=== PATIENT | female | born 1935 | race Caucasian/White ===

== ENCOUNTER → 2016-12-16 | Outpatient (CLI) | payer OTHER ==
--- NOTE | 2016-12-16 11:48 | DI ---
XR ANKLE COMPLETE MIN 3VW,12/16/2016 9:50 AM: Clinical History: Right ankle pain of unspecified chronicity. Previous Exam: None at this facility. Findings: 3 views of the right ankle are obtained, and demonstrate diffuse osteopenia. There is soft tissue swe lling surrounding the right ankle. There is a cortical bone screw through the medial malleolus and the distal tibia. There are degenerative changes involving the tarsometatarsal joints. There is some enthesopathy noted at the insertion of plantar fascia. Advanced degenerative changes of the tibiotalar joint are also noted with some sclerosis. Impression: 1. No acute fractures. 2. 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 3. Postsurgical changes and surrounding soft tissue swelling.
== END ==
LOC: ORTHO 10:00
PROVIDERS: ATTEND Orthopaedic Surgery
DX: M25.571 Pain in right ankle and joints of right foot (principal); M19.071 Primary osteoarthritis, right ankle and foot; Z98.890 Other specified postprocedural states
CPT/HCPCS: 73610; 99203; G0463

== ENCOUNTER 2017-07-07 06:00 | Inpatient (IN) ==
[~2017-07-07 06:00] MED LIST: LIDOCAINE W/ SODIUM BICARB 0.5 ML SYR ONE; LIDOCAINE W/ SODIUM BICARB 0.5 ML SYR SUBD ONE; Lactated Ringers 1,000 ML PRIMARY IV ONE; ceFAZolin Inj 2gm (Premix) 2 GM/50 ML BAG IV ONE
[2017-07-07] MEDS: Lactated Ringers 1,000 ML PRIMARY IV SCH ×4 (06:15→20:54)
[2017-07-07 06:29] LABS: BILIRUBIN,URINE NEGATIVE (NEG); CLARITY,URINE CLEAR (CLEAR); COLOR,URINE YELLOW (Y); GLUCOSE, URINE (UA) NEGATIVE (NEG); OCCULT BLOOD,URINE NEGATIVE (NEG); PROTEIN,URINE TRACE mg/dl (NEG)
[2017-07-07 06:36] LABS: BACTERIA,URINE FEW; RBC,URINE 0 /hpf; RENAL EPITHELIAL CELLS,URINE RARE; SQUAMOUS EPITHELIAL CELL,UR MANY; URINE SAMPLE TYPE CLEAN CATCH URINE
[2017-07-07 06:37] LABS: URINE CASTS FEW
[2017-07-07] MEDS ORDERED: Vancomycin Inj 1gm vial ONE (07:00)
[2017-07-07] MEDS ORDERED: TRANEXAMIC ACID 1,000 MG / 10 ML VIAL ONE (07:01)
[2017-07-07] MEDS ORDERED: Sodium Chloride 0.9% 100 ML IV ONE (07:01)
[2017-07-07] MEDS ORDERED: MIDAZOLAM 5 MG/1 ML ONE (07:06)
[2017-07-07] MEDS ORDERED: fentaNYL Inj 100 MCG/2 ML VIAL ONE (07:06)
[2017-07-07] MEDS ORDERED: BUPivacaine Inj 0.25% PF - 10ml vial ONE ×2 (07:06→10:08)
[2017-07-07] MEDS ORDERED: LIDOCAINE 2%/ EPI 1:200,000 - 20 ML VIAL ONE (07:06)
[2017-07-07] MEDS ORDERED: BUPivacaine Inj 0.5% PF (5mg/ml) 10ml vial ONE (07:07)
[2017-07-07] MEDS ORDERED: LIDOCAINE W/ SODIUM BICARB 0.5 ML SYR ONE (07:11)
[2017-07-07] MEDS ORDERED: PROPOFOL 10 MG/1 ML (200 MG/20 ML) VIAL IV ONE (07:35)
[2017-07-07] MEDS ORDERED: ROCURONIUM 10 MG/1 ML - 5 ML VIAL IVP ONE (07:36)
[2017-07-07] MEDS ORDERED: Lactated Ringers 1,000 ML PRIMARY IV ONE (08:44)
[2017-07-07] MEDS ORDERED: PROMETHAZINE 25 MG/1 ML VIAL IM PRN (09:03)
[2017-07-07] MEDS ORDERED: fentaNYL Inj 100 MCG/2 ML VIAL IVP PRN (09:03)
[2017-07-07] MEDS ORDERED: NORMAL SALINE 10 ML SYRINGE FLUSH IVP PRN (09:03)
[2017-07-07] MEDS ORDERED: ONDANSETRON 4 MG/2 ML VIAL IVP PRN (09:03)
[2017-07-07] MEDS ORDERED: HYDROmorphone 2 MG/1 ML IVP PRN (09:03)
--- NOTE | 2017-07-07 09:03 | CRNA.PROCE ---
Nerve Block Documentation - - Safety Measures: Time Out Taken, Site Verified - - Type of Nerve Block Used: Right Popliteal Fossa Block (Also Right saphenous field block with 10ml 0.25% Marcaine plain) Position for Nerve Block: Prone Moniters Used During Block: EKG, SPO2, NIBP Sedation Used - Enter Amount in Comment Field [ANES.SEDAT]: Midazolam (mg): Yes (3mg iv), Fentanyl (mcg): Yes (100mcg iv) Skin Prep Used: ChloroPrep Technique: Nerve Stimulator Nerve Block Needle Used: 80 mm ProBlk II Stimulation Hz: 1.0 Stimulation Staring mA: 1.4 Stimulation Ending mA: 0.5 Local Anesthetic - Enter Amt in Comment Field [ANES.LOCNB]: 0.5 % Bupivacaine Plain (mL): Yes (20ml), 2 % Xylocaine with Epinephrine 1:200,000 (mL): Yes (20ml ) - - PreOp Block : Time In: 07:15 PreOp Block : Time Out: 07:30 Anesthesia Time - Other Weight: 78.471 kg Height: 5 ft 1.5 in Body Mass Index (BMI): 32.1
[2017-07-07] MEDS ORDERED: Lactated Ringers 1,000 ML PRIMARY IV SCH (09:15)
[2017-07-07] MEDS ORDERED: ONDANSETRON 4 MG/2 ML VIAL ONE (10:03)
--- NOTE | 2017-07-07 10:56 | CRNA.PROGR ---
Anesthesia Recovery Phase I - Post Anesthesia Evaluation Patient's Condition on Arrival in Phase I: Stable Pain Level: 0
--- NOTE | 2017-07-07 10:57 | CRNA.PROGR ---
Anesthesia Time - - Start date: 07/07/17 End date: 07/07/17 - Procedure/Recovery Time Anesthesia : Time In: 07:48 Anesthesia : Time Out: 10:43 Anesthesia : Total Time: 175 - Block Time PreOp Block : Time In: 07:15 PreOp Block : Time Out: 07:30 PreOp Block : Total Time: 15 - Total Anesthesia Time Total Anesthesia Time (minutes): 190 - Other Weight: 78.471 kg Height: 5 ft 1.5 in Body Mass Index (BMI): 32.1 Anesthesia Type: General Anesthesia : ET (Right total ankle)
[2017-07-07] MEDS ORDERED: MORPHINE SULFATE 2 MG/1 ML IVP PRN (11:30)
--- NOTE | 2017-07-07 11:30 | PDOC(PROG) ---
General Note Progress Note: PReop dx: Right ankle arthritis with retained HW Postop dx: Same Procedure: Right total ankle arthroplasty with HWR Surgeon: Victor Manuel Assist: Ulysses TT: [id number] Implants: [place] Complications none Findings as expected Blood loss: 50cc Stable to recovery
[2017-07-07] MEDS ORDERED: MORPHINE SULFATE 2 MG/1 ML IV PRN (12:17)
[2017-07-07] MEDS ORDERED: MORPHINE SULFATE 10 MG/1 ML IV PRN (12:17)
[2017-07-07] MEDS: oxyCODONE-ACETAMINOPHEN 5-325 TAB PO PRN ×2 (15:02→20:04)
--- NOTE | 2017-07-07 15:07 | CONSULT ---
Consult Note - Consult Consult Date: 07/07/17 Reason for Consult: PostOp Consulation : Ortho Requesting Physician: Dr. Rush Primary Care Provider: ELI REA - History of Present Illness History of Present Illness: This is 82 years old female with medical history significant for history of hypertension, hypercholesterolemia, COPD on oxygen at night and neuropathy with history of for osteoarthritis of the right ankle who came into the hospital to have right ankle arthroplasty done by Dr. Rush today, the hospitalist service were consulted for management of medical issues. Apart from pain in the right ankle patient is denying other symptoms. She rated her pain at 8/10. There is no nausea, no chest pain, no shortness of breath. Past Medical History Medical History: 1. Hypertension. 2. 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 3. Neuropathy. 4. Osteoarthritis Surgical History: 1. Bilateral hip replacements. 2. Bilateral shoulder replacement. 3. Bilateral placement. 4. Cholecystectomy. 5. Tonsillectomy and adenoidectomy. 6. Hysterectomy Family History: Reviewed an Not Pertinent Past Social History: Does not smoke, rarely drinks. No drugs. Lives in [place] from [place] with her . Tobacco Use: Former Smoker In the Past 12 Months, Have Used or Abuse Any of the Following Substance: Opiate Pain Medication Alcohol Use: Rarely Review of Systems - Review of Systems All Systems: Reviewed & No Additional Complaints Except as Stated Medication / Allergies Home Medications: Home Medications 3 Medication Instructions Recorded Confirmed Type Acetaminophen 500 mg PO TID PRN PRN 10/31/15 07/07/17 History Ascorbate Calcium/Bioflavonoid 1 tab PO DAILY 10/31/15 07/07/17 History [Anna Marie-C 500 mg Tablet] Calcium Carbonate/Vitamin D3 1 tab PO DAILY 10/31/15 07/07/17 History [Os-Bob 500+D Tablet] Carvedilol 6.25 mg PO BID 10/31/15 07/07/17 History Chlorthalidone 25 mg PO QAM 10/31/15 07/07/17 History Cholecalciferol [Vitamin D3] 2,000 unit PO DAILY 10/31/15 History Cyanocobalamin (Vitamin B-12) 500 mcg PO DAILY 10/31/15 07/07/17 History [Vitamin B-12] Diltiazem HCl [Cardizem] 360 mg PO EVERY AM 10/31/15 07/07/17 History Furosemide 20 mg PO DAILY PRN 10/31/15 07/07/17 History Hydrocodone Bit/Acetaminophen 1 tab PO Q6H PRN 10/31/15 07/07/17 History [Hydrocodon-Acetaminophen 5-325] Magnesium 250 mg PO DAILY 10/31/15 07/07/17 History Multivitamin [Multivitamins] 1 tab PO DAILY 10/31/15 07/07/17 History Nortriptyline HCl 10 mg PO BID 10/31/15 07/07/17 History Omeprazole 20 mg PO QAM 10/31/15 07/07/17 History Potassium Chloride [Klor-Con] 10 meq PO DAILY 10/31/15 07/07/17 History Pravastatin Sodium 10 mg PO BEDTIME 10/31/15 07/07/17 History Allergies/Adverse Reactions: Allergies 3 Allergy/AdvReac Type Severity Reaction Status Date / Time lisinopril Allergy Intermediate cough Verified 07/07/17 06:34 Exam - Vitals Vital Signs: Vital Signs Temperature 97.5 F Temperature Source Temporal Artery Scan Pulse Rate [Pulse Oximeter] 78 Pulse Rate 69 Respiratory Rate 18 Blood Pressure [Right Arm] 120/84 Blood Pressure 135/64 Pulse Ox 95 Oxygen Flow Rate 3 Oxygen Delivery Method Nasal Cannula Height 5 ft 1.5 in Weight 173 lb - General General Appearance: No Acute Distress, Cooperative - Head Head Exam: Normal Inspection - Eye Eye Exam: POSITIVE: Normal Appearance - ENT ENT Exam: POSITIVE: Normal Exam - Neck Neck Exam: Normal Inspection - Respiratory Respiratory Exam: POSITIVE: Clear to Auscultation - Bilaterally - Cardiovascular Cardiovascular Exam: POSITIVE: RRR - GI/Abdominal GI/Abdominal Exam: POSITIVE: Normal Bowel Sounds, Non Tender, Non Distended, Soft, No Organomegaly - Rectal Rectal Exam: POSITIVE: Deferred - External Exam: POSITIVE: Deferred - Extremities Additional Extremities Exam Details: Right leg in a cast. - Back Back Exam: POSITIVE: Normal Inspection - Neurological Neurological Exam: POSITIVE: Alert, Oriented x 3, CN II-XII Intact - Psychiatric Psychiatric Exam: POSITIVE: Normal Affect Assessment and Plan - Patient Problems (1) Status post surgery Current Visit: Yes Status: Acute Comment: She is status post right ankle arthroplasty. She'll be evaluated by PT and OT today. We'll see her progress tomorrow and see whether she needs to stay longer in the hospital. Code(s): Z98.890 - Other specified postprocedural states (2) Hypertension Current Visit: No Status: Acute Comment: Resume previous medication except will hold the chlorthalidone Code(s): I10 - Essential (primary) hypertension (3) Hyperlipidemia Current Visit: Yes Status: Acute Comment: Same med Code(s): E78.5 - Hyperlipidemia, unspecified
[2017-07-07] MEDS: NORMAL SALINE 10 ML SYRINGE FLUSH IVP PRN (17:21)
[2017-07-07] MEDS: KETOROLAC 15 MG/1 ML VIAL IVP PRN ×2 (17:21→23:18)
[2017-07-07] MEDS: MORPHINE SULFATE 4 MG/1 ML IV PRN ×3 (20:00→23:18)
[2017-07-07] MEDS: Pravastatin Tab 20 MG TAB PO SCH (20:01)
[2017-07-07] MEDS: CARVEDILOL 6.25 MG TABLET PO SCH (20:01)
[2017-07-07] MEDS ORDERED: NORTRIPTYLINE HCL 10 MG CAPSULE PO SCH ×2 (21:00)
[2017-07-08] MEDS: oxyCODONE-ACETAMINOPHEN 5-325 TAB PO PRN ×4 (01:45→21:20)
[2017-07-08] MEDS: KETOROLAC 15 MG/1 ML VIAL IVP PRN ×2 (04:57→21:20)
[2017-07-08] MEDS: Lactated Ringers 1,000 ML PRIMARY IV SCH (04:58)
[2017-07-08] MEDS: OMEPRAZOLE 20 MG CAPSULE PO SCH (07:06)
[2017-07-08] MEDS: MAGNESIUM OXIDE 400 MG TABLET PO SCH (07:06)
--- NOTE | 2017-07-08 07:43 | PDOC(PROG) ---
Date and Time of Service: 07/08/2017 7:43 AM Interval History: Subjective She said her pain seems to be better better controlled than yesterday. She is denying other symptoms. Apparently she is still too weak to go home. Objective : Exam - General General Appearance: No Acute Distress, Cooperative - Head Head Exam: Normal Inspection - Eye Eye Exam: Normal Appearance - ENT ENT Exam: Normal Exam - Neck Neck Exam: Normal Inspection - Respiratory Respiratory Exam: Clear to Auscultation - Bilaterally - Cardiovascular Cardiovascular Exam: RRR - GI/Abdominal GI/Abdominal Exam: Normal Bowel Sounds, Non Tender, Non Distended, Soft, No Organomegaly - Rectal Rectal Exam: Deferred - External Exam: Deferred - Extremities Additional Extremities Exam Details: Right leg in a cast. - Back Back Exam: Normal Inspection - Neurological Neurological Exam: Alert, Oriented x 3, CN II-XII Intact, No Facial Droop, Speech Intact / Clear - Psychiatric Psychiatric Exam: Normal Affect - Integumentary Integumentary Exam: Normal Color Assessment and Plan - Patient Problems (1) Status post surgery Current Visit: Yes Status: Acute Comment: She is status post ankle surgery. Continue current pain medication. Continue PT and OT. Per my discussion with Dr. Rush yesterday he was thinking about sending her home today but based on assessment of PT and OT she is unable to go home today. will switch her status to inpatient and she may need even a swing bed letr on. Will discuss it with the internet media planner. Code(s): Z98.890 - Other specified postprocedural states (2) Hypertension Current Visit: No Status: Acute Comment: Same med Code(s): I10 - Essential (primary) hypertension (3) Hyperlipidemia Current Visit: Yes Status: Acute Comment: Same med Code(s): E78.5 - Hyperlipidemia, unspecified
[2017-07-08] MEDS: DILTIAZEM CD 180 MG CAP PO SCH (08:17)
[2017-07-08] MEDS: CARVEDILOL 6.25 MG TABLET PO SCH ×2 (08:17→21:21)
[2017-07-08] MEDS: NORTRIPTYLINE HCL 10 MG CAPSULE PO SCH ×2 (08:18→21:23)
[2017-07-08] MEDS: Calcium/Vit D 600mg/400u Tab 1 TAB TABLET PO SCH (08:18)
[2017-07-08] MEDS: Multivitamin Tab 1 TAB PO SCH (08:18)
[2017-07-08] MEDS ORDERED: CYANOCOBALAMIN 500 MCG PO SCH (09:00)
--- NOTE | 2017-07-08 11:44 | PT.PROG ---
Progress Note Progress Note: S. Patient stated that she is a little sore this morning, O. Patient performed seated exercises in the form of; long arc quads, marches, pillow squeezes, clam shells all x 10 bilaterally, ankle pumps on the left x 10. Patient was left in chair with alarm and call light. A. Patient tolerated exercise well, she is concerned about how she is going to transfer safely at home. Patient would benefit from swing bed to increase strength and mobility at this time. P. Continue POC.
--- NOTE | 2017-07-08 16:45 | OT.PROG ---
Progress Note Progress Note: S: Pt. reports that she is feeling pretty good this afternoon with minimal pain prior to therapy session. O: Pt. was seen from 1530 to 1600 for skilled occupational therapy session. Pt. completed seated UBE X 8 min and the following UE strengthening with RTB: biceps curls X 20, triceps extension X 15, shoulder flexion X 15, horizontal abduction X 15, shoulder extension X 15, and rows X 15. She also completed 2# shoulder flexion X 15 and 2# chest press X 15. A: Pt. tolerated UE strengthening fair, however continues to demonstrate UE weakness, specifically with functional transfers. Pt. continues to benefit from skilled care to increase strength, ADL performance, safety, and functional transfers. P: Continue POC. TIANA Robin/Tha
--- NOTE | 2017-07-08 17:11 | PT.PROG ---
Progress Note Progress Note: S. Patient stated that she is a little sore this afternoon. O. Patient was dependently transferred to the wheelchair and wheeled to the therapy gym where she performed seated exercises in the form of; long arc quads , marches, ball squeezes, clam shells, all x 10 bilaterally, heel toe raises on the left. Patient performed sit to stands x 5 then performed standing heel raises x 5 on her left, then performed pivot transfer to the chair and was left with call light and alarm. A. Patient tolerated exercise fair, she is very hesitant about the transfer and is fearful of hurting her left hip, she would benefit from continued strengthening and mobility. P. Continue POC.
[2017-07-08] MEDS: NORMAL SALINE 10 ML SYRINGE FLUSH IVP PRN (21:19)
[2017-07-08] MEDS: Pravastatin Tab 20 MG TAB PO SCH (21:20)
[2017-07-09] MEDS: oxyCODONE-ACETAMINOPHEN 5-325 TAB PO PRN ×5 (01:04→20:32)
[2017-07-09] MEDS: NORMAL SALINE 10 ML SYRINGE FLUSH IVP PRN ×3 (05:02→18:42)
[2017-07-09] MEDS: KETOROLAC 15 MG/1 ML VIAL IVP PRN (05:03)
[2017-07-09 05:20] LABS: BASOPHILS # (AUTO) 0.02 10*3/UL; BASOPHILS % (AUTO) 0.3 % (0-1); EOSINOPHILS # (AUTO) 0.15 10*3/UL; EOSINOPHILS % (AUTO) 1.9 % (0-8); Hematocrit [HCT] 32.3 % (37.0-47.0); Hemoglobin [HGB] 10.7 g/dL (12.0-16.0); LYMPHOCYTES # (AUTO) 1.43 10*3/uL; MEAN CORPUSCULAR HEMOGLOBIN 30.9 PG (27-31); MEAN CORPUSCULAR HGB CONC 33.1 g/dL (33-37); MEAN CORPUSCULAR VOLUME 93.4 FL (81-99); MEAN PLATELET VOLUME 9.3 FL (7.4-12.2); MONOCYTES # (AUTO) 0.68 10*3/UL (0.3-0.8); MONOCYTES % (AUTO) 8.5 % (5-15); NEUTROPHILS # (AUTO) 5.67 10*3/UL; NEUTROPHILS % (AUTO) 71.2 % (50-80); RED BLOOD COUNT 3.46 10^6/uL (4.20-5.40)
[2017-07-09 05:30] LABS: BLOOD UREA NITROGEN 14 mg/dL (7-22)
[2017-07-09 05:32] LABS: PLATELET MORPHOLOGY COMMENT NORMAL MORPHOLOGY (NORM); RBC MORPHOLOGY COMMENT NORMAL MORPHOLOGY (NORM); WBC MORPHOLOGY COMMENT NORMAL MORPHOLOGY (NORM)
[2017-07-09] MEDS: MAGNESIUM OXIDE 400 MG TABLET PO SCH (06:34)
[2017-07-09] MEDS: OMEPRAZOLE 20 MG CAPSULE PO SCH (06:34)
[2017-07-09] MEDS: Calcium/Vit D 600mg/400u Tab 1 TAB TABLET PO SCH (08:32)
[2017-07-09] MEDS: CARVEDILOL 6.25 MG TABLET PO SCH ×2 (08:32→20:31)
[2017-07-09] MEDS: NORTRIPTYLINE HCL 10 MG CAPSULE PO SCH ×2 (08:32→20:31)
[2017-07-09] MEDS: Multivitamin Tab 1 TAB PO SCH (08:32)
[2017-07-09] MEDS: DILTIAZEM CD 180 MG CAP PO SCH (08:32)
--- NOTE | 2017-07-09 08:51 | PDOC(PROG) ---
Date and Time of Service: 07/09/2017 8:47 AM Interval History: Subjective Pain seemed to be controlled. Denying other symptoms. Objective : Data - Labs CBC and BMP: 07/09/17 05:12 07/09/17 05:12 Objective : Exam - General General Appearance: No Acute Distress, Cooperative - Head Head Exam: Normal Inspection - Eye Eye Exam: Normal Appearance - ENT ENT Exam: Normal Exam - Neck Neck Exam: Normal Inspection - Respiratory Respiratory Exam: Clear to Auscultation - Bilaterally - Cardiovascular Cardiovascular Exam: RRR - GI/Abdominal GI/Abdominal Exam: Normal Bowel Sounds, Non Tender, Non Distended, Soft, No Organomegaly - Rectal Rectal Exam: Deferred - External Exam: Deferred - Extremities Additional Extremities Exam Details: Right leg in a cast. - Back Back Exam: Normal Inspection - Neurological Neurological Exam: Alert, Oriented x 3, CN II-XII Intact - Psychiatric Psychiatric Exam: Normal Affect Assessment and Plan - Patient Problems (1) Status post surgery Current Visit: Yes Status: Acute Comment: Continue PT and OT. She lives alone with her she may end up needing to be on swing bed. Code(s): Z98.890 - Other specified postprocedural states (2) Hypertension Current Visit: No Status: Acute Comment: Continue same medications. Will restart her chlorthalidone. Continue holding the Lasix. Code(s): I10 - Essential (primary) hypertension (3) Hyperlipidemia Current Visit: Yes Status: Acute Comment: Same med Code(s): E78.5 - Hyperlipidemia, unspecified (4) Hypokalemia Current Visit: No Status: Acute Comment: Her potassium is low will add some potassium. We'll recheck it tomorrow and will check magnesium level also Code(s): E87.6 - Hypokalemia (5) DVT prophylaxis Current Visit: Yes Status: Acute Comment: Will start her on Lovenox
[2017-07-09] MEDS: ONDANSETRON 4 MG/2 ML VIAL IVP PRN ×2 (09:45→18:41)
[2017-07-09] MEDS: POTASSIUM CHLORIDE 20 MEQ TAB PO SCH ×2 (10:56→20:31)
[2017-07-09] MEDS: ENOXAPARIN SODIUM 40 MG/0.4 ML SYRINGE SUBCUT SCH (10:56)
[2017-07-09] MEDS: CHLORTHALIDONE 25 MG PO SCH (11:28)
--- NOTE | 2017-07-09 14:31 | ORTHO.PROG ---
Last Taken Vital Signs: Vital Signs - Last Taken Temperature 97.9 F 07/09/17 13:22 Pulse Rate 74 07/09/17 13:22 Respiratory Rate 18 07/09/17 13:22 Blood Pressure 125/63 07/09/17 13:22 Pulse Ox 91 07/09/17 13:22 Subjective: Pt feeling well, had some nausea earlier today but feeling well now. Sensation has returned to her baseline. Objective: SPlint in place RLE. Toes WWP, +EHL/FHL. Sensation at baseline. Assessment: POD#2 right total ankle replacement. Pt has not been able to pass PT and will likely require rehab bed. This was discussed with her. She will be NWB on her RLE for a total of 4 weeks and then begin weight bearing in a boot. Plan: Agree with rehab if unable to pass PT today or tomorrow. Lovenox for DVT ppx per hospitalist PT/OT Please keep right ankle elevated while in bed. Call with questions.
[2017-07-09] MEDS: DOCUSATE 100 MG CAPSULE PO PRN (20:31)
[2017-07-09] MEDS: Pravastatin Tab 20 MG TAB PO SCH (20:31)
[2017-07-10] MEDS: oxyCODONE-ACETAMINOPHEN 5-325 TAB PO PRN (04:33)
[2017-07-10] MEDS: DOCUSATE 100 MG CAPSULE PO PRN (04:33)
[2017-07-10 06:36] LABS: BLOOD UREA NITROGEN 14 mg/dL (7-22)
[2017-07-10] MEDS: OMEPRAZOLE 20 MG CAPSULE PO SCH (06:59)
[2017-07-10] MEDS: MAGNESIUM OXIDE 400 MG TABLET PO SCH (06:59)
[2017-07-10] MEDS ORDERED: Magnesium Sulfate 2gm (Premix) 2 GM/50 ML BAG IV ONE (07:59)
[2017-07-10] MEDS: ONDANSETRON 4 MG/2 ML VIAL IVP PRN (08:37)
[2017-07-10] MEDS: ENOXAPARIN SODIUM 40 MG/0.4 ML SYRINGE SUBCUT SCH (09:49)
[2017-07-10] MEDS: CARVEDILOL 6.25 MG TABLET PO SCH ×2 (09:50→20:41)
[2017-07-10] MEDS: Calcium/Vit D 600mg/400u Tab 1 TAB TABLET PO SCH (09:50)
[2017-07-10] MEDS: NORTRIPTYLINE HCL 10 MG CAPSULE PO SCH ×2 (09:50→20:41)
[2017-07-10] MEDS: Multivitamin Tab 1 TAB PO SCH (09:50)
[2017-07-10] MEDS: DILTIAZEM CD 180 MG CAP PO SCH (09:50)
[2017-07-10] MEDS: POTASSIUM CHLORIDE 20 MEQ TAB PO SCH ×3 (09:50→17:28)
--- NOTE | 2017-07-10 09:56 | PDOC(PROG) ---
Interval History: Patient is doing great still feel feel she needs a lot of help before she is back on her own she has been constipated that we will add some prune juice and make Colace scheduled nausea or vomiting Objective : Data - Labs CBC and BMP: 07/09/17 05:12 07/10/17 04:35 Objective : Exam - General General Appearance: No Acute Distress, Cooperative - Respiratory Respiratory Exam: Clear to Auscultation - Bilaterally, Breathing Non Labored, Normal To Percussion, Normal to Percussion and Palpation - Cardiovascular Cardiovascular Exam: RRR, No Murmur, No Clicks, No Gallops, No Rubs, PMI Non- Displaced - GI/Abdominal GI/Abdominal Exam: Normal Bowel Sounds, Non Tender, Non Distended, Soft, No Masses, No Hepatomegaly, No Splenomegaly, No Organomegaly - Extremities Extremities Exam: No Clubbing Present, No Edema Present Assessment and Plan - Patient Problems (1) Hypertension Current Visit: No Status: Acute Comment: stable Code(s): I10 - Essential (primary) hypertension (2) Hypokalemia Current Visit: No Status: Acute Comment: increase to 40 bid po Code(s): E87.6 - Hypokalemia (3) Status post surgery Current Visit: Yes Status: Acute Comment: continue pt ot depending on reccomandation mihjt need a rehab bed defer to ortho for pain and anticoagulation Code(s): Z98.890 - Other specified postprocedural states (4) Hyperlipidemia Current Visit: Yes Status: Acute Comment: cont [facility] med[facility] Code(s): E78.5 - Hyperlipidemia, unspecified (5) DVT prophylaxis Current Visit: Yes Status: Acute Comment: lovenox (6) Hypomagnesemia Current Visit: Yes Status: Acute Comment: was given 2 grams today check labs in am Code(s): E83.42 - Hypomagnesemia (7) Constipation Current Visit: Yes Status: Acute Comment: We'll add prune juice make Colace scheduled patient agrees discussed with nursing Code(s): K59.00 - Constipation, unspecified
[2017-07-10] MEDS: CHLORTHALIDONE 25 MG PO SCH (09:57)
[2017-07-10] MEDS: ALBUTEROL SULFATE 8.5 GM HFA INHALER INH PRN (19:38)
[2017-07-10] MEDS: Pravastatin Tab 20 MG TAB PO SCH (20:41)
[2017-07-11 06:00] LABS: BLOOD UREA NITROGEN 9 mg/dL (7-22); SERUM ALBUMIN 2.7 g/dL (3.5-4.8)
[2017-07-11] MEDS: POTASSIUM CHLORIDE 20 MEQ TAB PO SCH (06:35)
[2017-07-11] MEDS: ALBUTEROL SULFATE 8.5 GM HFA INHALER INH PRN ×3 (06:51→18:56)
[2017-07-11] MEDS: OMEPRAZOLE 20 MG CAPSULE PO SCH (06:58)
[2017-07-11] MEDS: MAGNESIUM OXIDE 400 MG TABLET PO SCH (06:58)
[2017-07-11] MEDS ORDERED: ACETAMINOPHEN 325 MG TABLET PO PRN (08:15)
[2017-07-11] MEDS: ENOXAPARIN SODIUM 40 MG/0.4 ML SYRINGE SUBCUT SCH (08:28)
[2017-07-11] MEDS: DILTIAZEM CD 180 MG CAP PO SCH (08:28)
[2017-07-11] MEDS: DOCUSATE 100 MG CAPSULE PO PRN (08:29)
[2017-07-11] MEDS: CARVEDILOL 6.25 MG TABLET PO SCH ×2 (08:29→20:41)
[2017-07-11] MEDS: Calcium/Vit D 600mg/400u Tab 1 TAB TABLET PO SCH (08:29)
[2017-07-11] MEDS ORDERED: Magnesium Sulfate 2gm (Premix) 2 GM/50 ML BAG IV ONE (08:29)
[2017-07-11] MEDS: NORTRIPTYLINE HCL 10 MG CAPSULE PO SCH ×2 (08:29→20:41)
[2017-07-11] MEDS: Multivitamin Tab 1 TAB PO SCH (08:29)
[2017-07-11] MEDS: ACETAMINOPHEN 325 MG TABLET PO PRN (08:30)
[2017-07-11] MEDS: CHLORTHALIDONE 50 MG TABLET PO SCH (08:30)
--- NOTE | 2017-07-11 08:31 | PDOC(PROG) ---
Interval History: No complaints doing therapy Objective : Data - Labs CBC and BMP: 07/09/17 05:12 07/11/17 04:41 Objective : Exam - General General Appearance: Cooperative - Respiratory Respiratory Exam: Clear to Auscultation - Bilaterally, Breathing Non Labored, Normal To Percussion, Normal to Percussion and Palpation - Cardiovascular Cardiovascular Exam: RRR, No Murmur, No Clicks, No Gallops, No Rubs, PMI Non- Displaced - GI/Abdominal GI/Abdominal Exam: Normal Bowel Sounds, Non Tender, Non Distended, Soft, No Masses, No Hepatomegaly, No Splenomegaly, No Organomegaly Assessment and Plan - Patient Problems (1) Hypertension Current Visit: No Status: Acute Comment: stable Code(s): I10 - Essential (primary) hypertension (2) Hypokalemia Current Visit: No Status: Acute Comment: resolved Code(s): E87.6 - Hypokalemia (3) Status post surgery Current Visit: Yes Status: Acute Comment: cont pt ot tylenol for pain Code(s): Z98.890 - Other specified postprocedural states (4) Hyperlipidemia Current Visit: Yes Status: Acute Comment: cont current meds Code(s): E78.5 - Hyperlipidemia, unspecified (5) DVT prophylaxis Current Visit: Yes Status: Acute (6) Hypomagnesemia Current Visit: Yes Status: Acute Comment: replace 2 more grams Code(s): E83.42 - Hypomagnesemia (7) Constipation Current Visit: Yes Status: Acute Comment: colace stop narcotics Code(s): K59.00 - Constipation, unspecified
--- NOTE | 2017-07-11 09:49 | PTI REPORT ---
Thank you for the referral of Concepcion Zambrano. She was seen on 07/07/17 for an inpatient evaluation status post right total ankle arthroplasty. SUBJECTIVE: The patient is an 82-year-old female who underwent a right total ankle procedure by Dr. Rush earlier today. The patient does have orders to be non weight-bearing on the right lower extremity. The patient states that she is having quite a bit of pain in her right ankle and reports her pain as an 8/10 on the verbal analog scale (0=no pain, 10=worst pain). She states that she did receive pain medication 30 minutes ago and that has brought her pain down slightly as she was at a 9/10 prior to the pain medication. The patient states that otherwise she is doing well since surgery. The patient lives in [place], [place] outside of [facility]. She states that she lives with her in a one level home with one step into her home. The patient states she has a toilet riser, shower chair, and a senior planner. The patient reports she is fairly independent with most of her ADLs but does need help at times donning and doffing her shoes and socks. The patient states that prior to her surgery she was using a cane for ambulation all the time. The patient states with her previous surgeries, she has used a walker as well. The patient states a history of bilateral shoulder, bilateral knee, and bilateral hip replacements. The patient states that she has not had any falls in the last three months. The patient does have a son that lives nearby on the ranch. The patient reports that she and her share the cooking, cleaning, and laundry duties. The patient states that she uses oxygen at night; she is on 2 liters. She states she does use it during the day as needed. PAST MEDICAL HISTORY: Past medical history can be found in the patient's medical record. OBJECTIVE FINDINGS: General observations: The patient was alert and oriented to setting upon PT arrival. The patient does have something similar to a cast around her right ankle and up around her right lower extremity to protect her total ankle joint. The patient does have an IV in place along with a Dyer and is on 2 liters of oxygen at this time. The patient denied any lightheadedness or dizziness as she was laying in bed. Pain: The patient reported a pain level of 8/10 on the verbal analog scale (0= no pain, 10=worst pain) but was willing to participate with therapy. Bed mobility: The patient required assist of one to move from supine to seated edge of bed. Once seated edge of bed, the patient denied any lightheadedness or dizziness and stated that she felt pretty good. The patient required assist of one to move from seated edge of bed to supine. Transfers: The patient was willing to try standing. The patient was instructed on her non weight-bearing precautions on the right lower extremity. The bed was raised and the patient was able to perform a sit to stand transfer maintaining non weight-bearing on the right with contact guard assist x1 and max verbal cueing. The patient was only able to stand for approximately 30 seconds before she needed to sit down due to pain in her left hip. The patient was able to perform sit to stand transfer twice. Once again she was limited to standing for 30 seconds on the second attempt and limited by her left hip pain. The patient does state that her left hip has dislocated on her a couple of times since getting her hip replacement. ASSESSMENT: The patient has fair rehab potential secondary to her age and past medical history along with her non weight-bearing precautions on the right side. Problem List: Patient is non weight-bearing on the right ankle Generalized weakness Short-Term Goals: To be met by discharge from inpatient: Patient will be able to perform all transfers safely and independently while maintaining non weight-bearing precautions on the right. Patient will be able to ambulate at least 20 feet with a walker, maintaining non weight-bearing on the right. Patient will be able to ambulate up and down at least two steps with her walker , non weight-bearing on the right. Long-Term Goals: To be met following discharge from inpatient: Patient will most likely be seen by outpatient physical therapy. TREATMENT PLAN: Patient will be seen B.I.D during the week and one time per day over the weekend as an inpatient to work on transfers and ambulation while maintaining non weight-bearing on the right along with generalized strengthening activities. The patient most likely will be appropriate for swingbed status due to her precaution of non weight-bearing on the right side as we will have some difficulties with that due to her previous issues with balance and her general strength and mobility. INITIAL TREATMENT: Treatment today consisted of the initial evaluation followed by one unit of functional activity. The patient was left in bed with right lower extremity elevated, bed alarm on, and call light within reach. MTDKaylie
--- NOTE | 2017-07-11 09:56 | OT.PROG ---
Progress Note Progress Note: S: Pt. reports that she is feeling well today with minimal pain. She reports that she wants to get dressed. O: Pt. was seen from 900 to 930 for skilled occupational therapy session. Pt. completed UE dressing with min. A to don a head well puller shirt and fasten bra in back while sitting up in bed. She required mod. A to move from supine to sit at EOB and max A to don pants to include pulling up pants and threading over feet as well as threading catheter. Pt. then completed the following UE strengthening RTB biceps X 20, RTB shoulder extension X 15, horizontal abduction X 15, triceps extension X 15, and 3# dowel shoulder flexion X 10. A: Pt. tolerated treatment fair. She continues to benefit from skilled care to increase strength, ADL performance, and functional transfers. P: Continue POC. TIANA Robin/Tha
--- NOTE | 2017-07-11 10:32 | OTI REPORT ---
Thank you for the referral of Concepcion Zambrano. She was seen on 07/08/17 for an occupational therapy inpatient evaluation status post right total ankle arthroplasty. SUBJECTIVE: The patient is an 82-year-old female who is being seen today secondary to having a right total ankle replacement. The patient reports she lives out in the "[facility]" with her . [place] are about [place] miles from [place] The patient reports prior to admission she had several surgeries including bilateral hips, bilateral knees, and bilateral shoulders. The patient reports that her left hip has come out a couple of times in the past few years. The patient states her knee is also very tender on that left side. The patient is a little hesitant about going home. She reports that her wants her to come home, but right now she is struggling with transfers. The patient's house is set up with a bathtub shower with a shower chair. They do have a high rise toilet seat. She does have some adaptive equipment from her previous hip and knee surgeries. The patient does have a wheeled walker at home. PAST MEDICAL HISTORY: Past medical history can be found in the patient's medical record. OBJECTIVE FINDINGS: General observations: The patient was sitting in chair upon the therapist's arrival. Range of motion: Even though the patient has had bilateral total shoulder arthroplasties, she does have good range of motion for shoulder flexion to approximately 150 degrees. Elbow flexion/extension and wrist flexion/extension were within normal limits. Strength: Strength for shoulder flexion was 3+/5, shoulder extension was 4/5, elbow flexion was 4/5, elbow extension was 3+/5, external rotation was 3/5, internal rotation was 3/5, and wrist flexion/extension was 3+/5. The patient has observable arthritis throughout all of her joints. She really has arthritis in her CMC region, especially in the left hand. She can make a full fist on her right hand; however, her left hand is very full of arthritis and she has a 1-1.5 inch flexion lag in fingers 2-4. The patient also has very noticeable arthritis in the CMC joint of the thumb. Activities of daily living: The patient requires max assist for all dressing, even with adaptive equipment. She is having a very hard time standing up to pull pants up. The patient was issued a bath sponge as well as a walker tray as it will be difficult for her to carry items when she does go home. Transfers: Today she demonstrated needing max assist with at least another person completing min assist to help her transfer. ASSESSMENT: Eventually the patient will return home, but she may need a swingbed stay; maybe even for the six weeks she is non weight-bearing. As of today, the patient is demonstrating a lot of difficulty with her transfers and abilities. This was all discussed with the patient. The patient states her is bringing a scooter; however, with her knee and hip difficulties, this may be difficult for the patient. Problem List: Decreased upper extremity strength Decreased ability to perform transfers Functional weakness Decreased ability to perform activities of daily living Short-Term Goals: To be met by discharge from inpatient: Patient will be able to dress self with use of adaptive equipment with modified independence. Patient will be able to complete a chair to commode transfer with min assist. Patient will be able to stand at sink x3 minutes to complete hygiene activities with contact guard assist. Patient will improve strength in the shoulders and elbows to 4+/5 to increase strength for functional transfers and ADLs. Patient will improve wrist strength to 4/5 to increase strength for functional transfers and ADLs. Patient will be able to transport items within a distance comparable to her home using the walker tray. Long-Term Goals: To be met following discharge from inpatient: Patient will be able to return home, safe and independent with her ADLs and functional transfers. TREATMENT PLAN: Patient will be seen B.I.D during the week and one time per day over the weekend as an inpatient to address the above goals and objectives. INITIAL TREATMENT: Treatment today consisted of the initial evaluation followed by the patient being educated on adaptive devices followed by the patient performing a functional transfer with max assist. The patient performed range of motion exercises with her upper extremities. SCOTTY
--- NOTE | 2017-07-11 10:42 | OT AM DAY ---
Diagnosis : Right Total Ankle Replacement AM - Occupational Therapy S: The patient reports she is having a lot of upper extremity weakness. Today the patient had her meds and breakfast in bed. O: The patient transferred from supine to sit with mod assist. While sitting edge of bed the patient completed a transfer to the wheelchair with max assist. The patient struggles quite a bit with her transfers and requires increased time. The patient also felt like her left hip was feeling a little "off". The patient transferred to the wheelchair where she completed hygiene activities including brushing teeth, washing face, and combing hair independently after set up. The patient was transferred downstairs where she worked on upper extremity exercises including arm bike x6 minutes, wall pulleys with 1-1.5 kilograms x10 repetitions for shoulder extension, triceps, rows, biceps, shoulder adduction, and external rotation. The patient attempted internal rotation with .5 kilograms and this really hurt her shoulders. She was only able to complete 5 repetitions of internal rotation with arms adducted. We then worked on some fine motor strength including power web and digi-flex. The patient also completed 2 pound kickouts with her legs. The patient became very nauseated toward the end of the session. She stated she had taken two of her pain medications prior to therapy. The therapist brought the patient back upstairs and her nurse was notified. She was given some Zofran ; however, the patient became very white and pasty and she complained she was hot and sweaty. The patient did not end up getting sick, but did become very nauseous. A: The patient's therapy session was cut a little bit short because of the nausea. She required max assist and a lot of verbal cueing to transfer back to her chair. P: Continue seeing patient BID during the week and one time per day over the weekend for upper extremity strengthening, ADLs, and overall functional mobility. SCOTTY
[2017-07-11] MEDS: NORMAL SALINE 10 ML SYRINGE FLUSH IVP PRN (11:32)
--- NOTE | 2017-07-11 11:39 | OT AM DAY ---
Diagnosis : Right Total Ankle Arthroplasty AM - Occupational Therapy S: The patient reports that her hip hurt a little bit when completing a stand pivot transfer on the left side. O: The patient was in bed upon the therapist's arrival. She transferred from the bed to the wheelchair with max assist. She needed mod assist to move her right lower extremity to the edge of the bed before the stand pivot. Once in the chair, the patient completed some simple hygiene activities independently after set up. The patient transferred downstairs where she worked on upper extremity strengthening including upper body ergometer x4 minutes, power web, digi-flex, shoulder flexion to 110 degrees x10 repetitions, triceps with theraband, external rotation with theraband, forearm pronation/ supination with a one pound weight, wrist extension, and biceps curls with a two pound ball; however, the patient had a hard time holding the ball in her hand so she dropped it a couple of times. We put a one pound weight on the patient's left leg and she performed hip flexion, knee extension, and heel raises. On her right leg she performed knee extension with no weight as her cast does weigh quite a bit. We then wheeled the patient back up to her room and helped nursing weigh her in the wheelchair. The patient then returned back to her room and performed a stand pivot transfer to her chair with max assist. The patient was very fatigued and the transfer did not go as smoothly as prior to therapy. The patient was left in recliner with call light within reach. A: The patient was very fatigued after treatment today. P: Continue seeing patient BID during the week and one time per day over the weekend for upper extremity strengthening, ADLs, and overall functional mobility. MTDD
--- NOTE | 2017-07-11 11:57 | PT.PROG ---
Progress Note Progress Note: S. Patient stated that she doesnt have any pain this morning. O. Patient transferred to the wheelchair then was wheeled to the therapy gym where she performed exercise in the form of; Long arc quads, heel toe raises, marches, ball squeezes, resisted knee flexion, clam shells, all x 10 bilaterally , with red thera band. patient performed sit to stands x 5 then was wheeled back to her room where she was left with call light and alarm. A. Patient tolerated therapy fair this morning, she continues to be non weight bearing on thr right foot and continues to struggle with transfers due to her left hip bothering her. She would continue to benefit from strengthening and endurance training. She would benefit from swing bed to become more independent before going home. P. Continue POC.
--- NOTE | 2017-07-11 16:23 | PT.PROG ---
Progress Note Progress Note: S. Patient stated that she would like to go to the therapy gym this afternoon. She reports that she is feeling good. O. Patient transferred from the chair to the wheelchair and was wheeled to the therapy gym then performed seated exercises in the form of; long arc quads, marches, ball squeezes, clam shells, resisted knee flexion, all bilaterally x 15 , sit to stands x 5 then was wheeled to her room and transferred from the wheelchair to the chair and was left with alarm and call light. A. Patient tolerated therapy fair, she was able to perform all seated exercises however continues to require min assist with transfers. Patient has hip problems on the left and is non weight bearing on the right, She would continue to benefit from skilled therapy to increase strength, mobility and endurance to become more independent before going home. P. Continue POC.
[2017-07-11] MEDS: Pravastatin Tab 20 MG TAB PO SCH (20:41)
[2017-07-12] MEDS: ALBUTEROL SULFATE 8.5 GM HFA INHALER INH PRN ×2 (07:04→18:55)
[2017-07-12] MEDS: OMEPRAZOLE 20 MG CAPSULE PO SCH (07:05)
[2017-07-12] MEDS: MAGNESIUM OXIDE 400 MG TABLET PO SCH (07:06)
[2017-07-12] MEDS: ACETAMINOPHEN 325 MG TABLET PO PRN (09:31)
[2017-07-12] MEDS: NORTRIPTYLINE HCL 10 MG CAPSULE PO SCH ×2 (09:31→21:33)
[2017-07-12] MEDS: DILTIAZEM CD 180 MG CAP PO SCH (09:31)
[2017-07-12] MEDS: CARVEDILOL 6.25 MG TABLET PO SCH ×2 (09:32→21:33)
[2017-07-12] MEDS: Multivitamin Tab 1 TAB PO SCH (09:32)
[2017-07-12] MEDS: CHLORTHALIDONE 50 MG TABLET PO SCH (09:32)
[2017-07-12] MEDS: ENOXAPARIN SODIUM 40 MG/0.4 ML SYRINGE SUBCUT SCH (09:32)
[2017-07-12] MEDS: Calcium/Vit D 600mg/400u Tab 1 TAB TABLET PO SCH (09:32)
--- NOTE | 2017-07-12 10:57 | PDOC(PROG) ---
Interval History: Patient has no complaints she does not want her Dyer catheter out she knows that that would be increased risk of infection she absolutely will not let us taken out she is unable to bear weight on that right leg because of her ankle surgery Objective : Data - Labs CBC and BMP: 07/09/17 05:12 07/11/17 04:41 Objective : Exam - General General Appearance: No Acute Distress, Cooperative - Head Head Exam: Normal Inspection, Normocephalic, Atraumatic - Respiratory Respiratory Exam: Clear to Auscultation - Bilaterally, Breathing Non Labored, Normal To Percussion, Normal to Percussion and Palpation - Cardiovascular Cardiovascular Exam: RRR, No Murmur, No Clicks, No Gallops, No Rubs, PMI Non- Displaced - GI/Abdominal GI/Abdominal Exam: Normal Bowel Sounds, Non Tender, Non Distended, Soft, No Masses, No Hepatomegaly, No Splenomegaly, No Organomegaly - Extremities Extremities Exam: No Clubbing Present, No Edema Present, No Cyanosis Present - Neurological Neurological Exam: Alert, Oriented x 3, Reflexes Normal, Normal Gait, CN II-XII Intact, No Facial Droop, Moves All Extremities Equally Assessment and Plan - Patient Problems (1) Hypertension Current Visit: No Status: Acute Comment: Stable at present time Code(s): I10 - Essential (primary) hypertension (2) Hypokalemia Current Visit: No Status: Acute Comment: Resolved Code(s): E87.6 - Hypokalemia (3) Status post surgery Current Visit: Yes Status: Acute Comment: Defer to orthopedic surgery Code(s): Z98.890 - Other specified postprocedural states (4) Hyperlipidemia Current Visit: Yes Status: Acute Comment: Stable Code(s): E78.5 - Hyperlipidemia, unspecified (5) DVT prophylaxis Current Visit: Yes Status: Acute (6) Hypomagnesemia Current Visit: Yes Status: Acute Comment: Recheck magnesium level Code(s): E83.42 - Hypomagnesemia (7) Constipation Current Visit: Yes Status: Acute Comment: Continue Colace Code(s): K59.00 - Constipation, unspecified
--- NOTE | 2017-07-12 11:00 | OT PM DAY ---
Diagnosis : Right Total Ankle Arthroplasty PM - Occupational Therapy S: The patient reports she is a little weak but overall doing well. She states she enjoys the exercises. O: The patient performed therapeutic exercises including yellow theraband resisted horizontal abduction, internal/external rotation, extension, triceps, biceps, horizontal abduction, chest push outs with a two pound ball, and shoulder flexion. The patient also performed fine motor activities for her hand including rice bucket activities, power web, and digi-flex. A: The patient did well with upper extremity exercises. P: Continue seeing patient BID during the week and one time per day over the weekend for upper extremity strengthening, ADLs, and overall functional mobility. SCOTTY
--- NOTE | 2017-07-12 11:32 | PT.PROG ---
Progress Note Progress Note: S. Patient stated that she is feeling good this morning. O. Patient performed pivot transfer from the bed to the wheelchair and was wheeled to the therapy gym where she performed seated exercises in the form of; long arc quads, marches, ball squeezes, clam shells, resisted knee flexion all x 15 bilaterally. Patient performed sit to stands x 5 then was wheeled back to her room where she performed pivot transfer to the commode and was left with call light and nursing was notified. A. Patient tolerated therapy fair, she continues to struggle with balance on her left leg, she continues to be non weight bearing on the right and would benefit from swing bed to increase strength and mobility for safety before going home. P. Continue POC.
--- NOTE | 2017-07-12 16:00 | PT.PROG ---
Progress Note Progress Note: S. Patient stated that she is feeling good this afternoon. O. Patient performed pivot transfer from the bed to the wheelchair and was wheeled to the therapy gym where she performed seated exercises in the form of; long arc quads, marches, ball squeezes, clam shells, resisted knee flexion all x 15 bilaterally. Patient performed sit to stands x 5 then was wheeled back to her room where she performed pivot transfer to her chair and was left with call light and alarm. A. Patient tolerated exercise fair, she continues to struggle with weakness and immobility due to non weight bearing on the right and hip problems on the left. Patient continues to require frequent verbal cues to perform pivot transfer safely. She would benefit from swing bed at this time. P. Continue POC.
[2017-07-12 20:34] VITALS: BP 160/63; RESP 20; TEMP 97; O2SAT 91
--- NOTE | 2017-07-12 20:45 | DCSUMMARY ---
Hospitalization Summary Hospital Course: Final Discharge Diagnosis: Current Visit Problems Problem Status Onset Code Status post surgery Acute Z98.890 Hyperlipidemia Acute E78.5 DVT prophylaxis Acute Hypomagnesemia Acute E83.42 Constipation Acute K59.00 Diagnostic Data, Laboratory Data, and Procedures of Signifigance: History and Physical pertinent to Admission: Past Medical History Medical History: 1. Hypertension. 2. 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 3. Neuropathy. 4. Osteoarthritis Surgical History: 1. Bilateral hip replacements. 2. Bilateral shoulder replacement. 3. Bilateral placement. 4. Cholecystectomy. 5. Tonsillectomy and adenoidectomy. 6. Hysterectomy Family History: Reviewed an Not Pertinent Past Social History: Does not smoke, rarely drinks. No drugs. Lives in about [place] miles from [place] with her . Tobacco Use: Former Smoker In the Past 12 Months, Have Used or Ab Course of Hospitalization: Is a very nice 82-year-old female with past medical history significant for COPD on oxygen, hypertension, high cholesterol and neuropathy she underwent right ankle replacement by Dr. Rush. Her pain is being controlled electrolytes have been replaced patient will be needing extra physical therapy because she cannot manage herself with her right ankle not being to bear weight she also refuses to take out the Dyer she will be transferred to swing bed for further rehabilitation pain is controlled I discussed this with the patient which agrees she does know of the increased risk of UTI if she does not take out her Dyer we will continue talking to her about this On the date of discharge, the patient was examined: Gen.: No acute distress, alert, nontoxic Heart: Regular rate and rhythm, no murmurs, clicks, gallops, or rubs Lungs: Clear to auscultation bilaterally, breathing is nonlabored Abdomen/GI: Normal tones on auscultation, soft, nontender, nondistended Musculoskeletal/extremities: No clubbing, cyanosis, or edema Vitals reviewed and are listed below Vital Signs (24 hrs) Temp Pulse Resp BP Pulse Ox 07/12/17 20:33 97.0 F 85 20 160/63 91 07/12/17 16:06 97.5 F 75 17 149/55 95 07/12/17 11:03 97.8 F 81 18 129/45 94 07/12/17 07:02 90 07/12/17 06:41 97.4 F 80 20 144/56 94 07/12/17 04:54 97.3 F 78 24 145/51 92 07/12/17 01:00 97.6 F 81 24 139/43 94 07/11/17 21:00 97.7 F 82 20 141/64 91 Assessment and Plan: 1. As per discharge assessments above 2. Disposition: 3. Condition on discharge, stable and improved. 4. Diet: regular diet 5. Activities: resume normal activities 6. Follow-Up: 1. PCP 2. 7. Medications at the Time of Discharge: Home Medications 3 Medication Instructions Recorded Confirmed Type Acetaminophen 500 mg PO TID PRN PRN 10/31/15 07/07/17 History Ascorbate Calcium/Bioflavonoid 1 tab PO DAILY 10/31/15 07/07/17 History [Anna Marie-C 500 mg Tablet] Calcium Carbonate/Vitamin D3 1 tab PO DAILY 10/31/15 07/07/17 History [Os-Bob 500+D Tablet] Carvedilol 6.25 mg PO BID 10/31/15 07/07/17 History Chlorthalidone 25 mg PO QAM 10/31/15 07/07/17 History Cholecalciferol [Vitamin D3] 2,000 unit PO DAILY 10/31/15 History Cyanocobalamin (Vitamin B-12) 500 mcg PO DAILY 10/31/15 07/07/17 History [Vitamin B-12] Diltiazem HCl [Cardizem] 360 mg PO EVERY AM 10/31/15 07/07/17 History Furosemide 20 mg PO DAILY PRN 10/31/15 07/07/17 History Hydrocodone Bit/Acetaminophen 1 tab PO Q6H PRN 10/31/15 07/07/17 History [Hydrocodon-Acetaminophen 5-325] Magnesium 250 mg PO DAILY 10/31/15 07/07/17 History Multivitamin [Multivitamins] 1 tab PO DAILY 10/31/15 07/07/17 History Nortriptyline HCl 10 mg PO BID 10/31/15 07/07/17 History Omeprazole 20 mg PO QAM 10/31/15 07/07/17 History Potassium Chloride [Klor-Con] 10 meq PO DAILY 10/31/15 07/07/17 History Pravastatin Sodium 10 mg PO BEDTIME 10/31/15 07/07/17 History 8. Time, care, counseling and coordination of care for this discharge is greater than 30 minutes. Exam - Vitals Vital Signs: Vital Signs Temperature 97.0 F Temperature Source Temporal Artery Scan Pulse Rate [Apical] 68 Pulse Rate [Pulse Oximeter] 85 Pulse Rate 69 Respiratory Rate 20 Blood Pressure [Right Arm] 160/63 Blood Pressure 135/64 Pulse Ox 91 Oxygen Flow Rate 3 Oxygen Delivery Method Nasal Cannula Height 5 ft 1.5 in Weight 193 lb 3.2 oz Patient Problems - Patient Problem List (1) Hypertension Current Visit: No Status: Acute Comment: Continue Coreg. I did restart her , chlorthalidone, I think I'll hold off on the Cardizem today. Code(s): I10 - Essential (primary) hypertension Category: Medical (2) Hypokalemia Current Visit: No Status: Acute Comment: Continue potassium replacement Code(s): E87.6 - Hypokalemia Category: Medical (3) Status post surgery Current Visit: Yes Status: Acute Code(s): Z98.890 - Other specified postprocedural states Category: Surgical (4) Hyperlipidemia Current Visit: Yes Status: Acute Code(s): E78.5 - Hyperlipidemia, unspecified Category: Medical (5) DVT prophylaxis Current Visit: Yes Status: Acute Category: Medical (6) Hypomagnesemia Current Visit: Yes Status: Acute Code(s): E83.42 - Hypomagnesemia Category : Medical (7) Constipation Current Visit: Yes Status: Acute Code(s): K59.00 - Constipation, unspecified Category: Medical
[2017-07-12] MEDS: Pravastatin Tab 20 MG TAB PO SCH (21:32)
--- NOTE | 2017-07-13 09:39 | OT AM DAY ---
Diagnosis : Right Total Ankle Arthroplasty AM - Occupational Therapy S: The patient states she is feeling pretty good today. The patient reports she has had several joint replacements in the past. O: The patient was transferred down to the therapy gym by PT. Once she arrived in therapy, she completed upper extremity exercises with red theraband in all planes and ranges x15 repetitions to increase her strength to assist with postural transitions. She also completed upper body ergometer x6 minutes to increase her activity tolerance. The patient was returned to her room where she was left upright in her chair with call light within reach and chair alarm on. A: The patient tolerated today's treatment well. P: Continue seeing patient BID during the week and one time per day over the weekend for upper extremity strengthening, ADLs, and overall functional mobility. SCOTTY
--- NOTE | 2017-07-13 09:47 | OT PM DAY ---
Diagnosis : Right Total Ankle Arthroplasty PM - Occupational Therapy S: The patient states she is doing well and is ready for therapy. O: The patient was seen in her room. She was brought down to the therapy gym by PT. After PT, the patient completed therapeutic exercises including theraputty, digi-flex, power web, and rice activities to increase her fine motor strength and dexterity in bilateral hands to assist with functional tasks such as dressing. A: The patient will continue to benefit from therapy to increase her overall strength to assist with postural transitions such as sit to stands and other transfers. P: Continue seeing patient BID during the week and one time per day over the weekend for upper extremity strengthening, ADLs, and overall functional mobility. SCOTTY
== END 2017-07-12 22:38 | disposition swing bed (61) | DRG 469 ==
LOC: OR 06:02 → MED/SURG 06:02 → EDSTATUS 07:30 → OBSVTOIN 11:10 → MED/SURG 07-08 14:32
PROVIDERS: ADMIT Orthopaedic Surgery; ATTEND Orthopaedic Surgery